=== PATIENT | male | born 1995 | race Caucasian/White ===

== ENCOUNTER 2020-03-20 12:04 | Emergency (ER) | payer OTHER, BC, MEDICAID, SELFPAY ==
[2020-03-20 12:26] VITALS: BP 110/56; PULSE 70; RESP 16; TEMP 37; O2SAT 99
--- NOTE | 2020-03-20 12:26 | ED.URI ---
HPI - URI/Sore Throat General Chief Complaint: Upper Respiratory Infection Stated Complaint: Neg for Covid,Congestion Time Seen by Provider: 03/20/20 12:26 Source: patient and RN notes reviewed Mode of arrival: ambulatory Limitations: no limitations History of Present Illness HPI Narrative: 24-year-old male presents to the ER with complaints of a sore throat, rhinorrhea, cough, fatigue. States he had a positive Covid exposure on 10 March. Symptoms started 16 March, 4 days ago. Denies any chest pain or abdominal pain. Denies fevers. Related Data Home Medications Medication Instructions Recorded Confirmed No Home Medications 03/20/20 03/20/20 Allergies Allergy/AdvReac Type Severity Reaction Status Date / Time No Known Allergies Allergy Verified 03/20/20 12:32 Review of Systems Review of Systems: Narrative: CONSTITUTIONAL: Denies fever, chills, or sweats. EYES: Denies visual changes, redness, or discharge. ENT: Positive rhinorrhea, congestion, sore throat, or otalgia. CARDIOVASCULAR: Denies chest pain, palpitations, or edema. RESPIRATORY: Positive cough or denies dyspnea. GASTROINTESTINAL: Denies abdominal pain, nausea, vomiting, or diarrhea. GENITOURINARY: Denies dysuria or hematuria. SKIN: Denies rash or itching. MUSCULOSKELETAL: Denies back pain, joint pain, or myalgia. NEUROLOGIC: Denies headache, numbness, or weakness. PSYCHIATRIC: Denies anxiety or depression. All other systems reviewed are negative, except as documented in HPI. PMFSH Social History Social History Alcohol intake: never Comments At the time of my signature, I reviewed and agree with the nursing past medical, surgical, social, and family history. There is no relevant family history pertinent to the patient complaint. Exam Narrative: Exam Narrative: GENERAL: This is a well-nourished, well-developed patient, in no apparent distress. HEAD: normocephalic, atraumatic. EYES: PERRL. Sclera clear/white. Vision is grossly intact. EARS: External ears normal, auditory canals clear and without drainage, TMs normal without perforation. Hearing grossly intact. NOSE: External nose normal. Positive nasal discharge, nares without redness, positive rhinorrhea. THROAT: Mucous membranes moist, posterior pharynx clear. NECK: Neck supple, non-tender without lymphadenopathy, masses or thyromegaly. CARDIOVASCULAR: Regular rate and rhythm without murmurs, gallops, or rubs. RESPIRATORY: Clear to auscultation. Breath sounds equal bilaterally. No wheezes, rales, or rhonchi. GASTROINTESTINAL: Abdomen soft, non-tender, nondistended. SKIN: warm, intact with no suspicious lesions or rash, good texture and turgor. NEURO: awake, alert, and oriented to person, place and time. There were no obvious focal neurologic abnormalities. EXTREMITIES: No clubbing, cyanosis, or edema. No joint tenderness, effusion, or edema noted. BACK: Nontender without deformity or crepitance. No flank tenderness. Course Vital Signs Vital signs: Vital Signs Temperature 98.6 F 03/20/20 12:26 Pulse Rate 70 03/20/20 12:26 Respiratory Rate 16 03/20/20 12:26 Blood Pressure 110/56 L 03/20/20 12:26 Pulse Oximetry 99 03/20/20 12:26 Temperature 99.7 F H 03/20/20 13:22 Pulse Rate 102 H 03/20/20 13:22 Respiratory Rate 22 H 03/20/20 13:22 Blood Pressure 113/68 03/20/20 13:22 Pulse Oximetry 100 03/20/20 13:22 Reviewed MDM - URI/Sore Throat Differential Diagnosis Differential diagnosis: Likely upper respiratory infection, otitis media, sinusitis, viral infection, bronchitis, influenza and pharyngitis Lab Data Labs: Lab Results 03/20/20 03/20/20 Range/Units 12:25 12:52 SARS-CoV-2 RNA (RT-PCR) Pending POC SARS CoV-2 Ag Negative (Negative) Influenza A Screen Negative Reference Range: Negative Influenza B Screen Negative Refer
[2020-03-20 12:33] VITALS: BP 110/56; PULSE 70; RESP 16; TEMP 37; O2SAT 99
[2020-03-20 13:22] VITALS: BP 113/68; PULSE 102; RESP 22; TEMP 37.6; O2SAT 100
[2020-03-21 13:28] LABS: SARS-CoV-2 RNA PCR Negative
== END 2020-03-20 13:00 | disposition home or self-care (01) ==
PROVIDERS: Emergency Provider Nurse Practitioner; PCP Physician Assistant
DX: B34.9 Viral infection, unspecified (principal); R09.82 Postnasal drip; Z20.822 Contact with and (suspected) exposure to COVID-19
CPT/HCPCS: 87081; 87426; 87804; 87880; 99213; C9803; G0463; U0003; U0005

== ENCOUNTER 2022-02-17 17:16 | Emergency (ER) | payer BC, MEDICAID, SELFPAY ==
[2022-02-17 17:31] VITALS: BP 109/74; PULSE 77; RESP 18; TEMP 36.9; O2SAT 100
--- NOTE | 2022-02-17 17:46 | ED.URI ---
HPI - URI/Sore Throat General Chief Complaint: Upper Respiratory Infection Stated Complaint: Sore Throat Time Seen by Provider: 02/17/22 17:45 Source: patient Mode of arrival: ambulatory Limitations: no limitations History of Present Illness HPI Narrative: Maco is a 26-year-old male patient presenting to the clinic today with complaints of sinus drainage, sore throat, ear pain, and sinus pressure. He reports his symptoms have been ongoing for a long time now. He denies any fever or chills. MD elicited complaint: sore throat and nasal congestion Related Data Home Medications Medication Instructions Recorded Confirmed bupropion HCl 100 mg tablet 100 mg PO DIRECTED 02/17/22 02/17/22 Allergies Allergy/AdvReac Type Severity Reaction Status Date / Time No Known Allergies Allergy Verified 02/17/22 17:20 Review of Systems Review of Systems: Pertinent positives per HPI. Patient denies any fever, chills, rash, headache, visual changes, dizziness, shortness of breath, chest pain, palpitations, nausea, vomiting, diarrhea, constipation, abdominal pain, or any urinary issues. PMFSH Social History Social History Alcohol intake: never Comments At the time of my signature, I reviewed and agree with the nursing past medical, surgical, social, and family history. There is no relevant family history pertinent to the patient complaint. Exam Narrative: General: Well-developed, well nourished, in no apparent distress Head: Normocephalic, atraumatic Eyes: Pupils equally round and reactive to light bilaterally, EOM intact, sclera and conjunctive clear, no discharge, lids normal Ears: TMs intact , dull with mild bulging, ear canals clear, no drainage, grossly hearing normal. Nose: Nares patent, clear nasal discharge, moderate to severe inflammation, maxillary and frontal sinus tenderness. Mouth: Oral pharynx without lesions or masses, good dentition, MMM. postnasal drip Neck: Supple, trachea midline, no enlargement of anterior or posterior cervical nodes, no thyroid masses or goiter palpable. Cardio: Regular rate and rhythm, s1 and s2 normal, no murmur appreciated. Resp: Clear to auscultation bilaterally, no rhonchi, rales, wheezing or rubs Course Course Emergency Course: Portions of this record may have been created with voice recognition software. Level of Care: Express Care Visit Vital Signs Vital signs: Vital Signs Temperature 36.9 C 02/17/22 17:31 Pulse Rate 77 02/17/22 17:31 Respiratory Rate 18 02/17/22 17:31 Blood Pressure 109/74 02/17/22 17:31 Pulse Oximetry 100 02/17/22 17:31 Oxygen Delivery Room Air 02/17/22 17:31 Temperature 36.9 C 02/17/22 17:31 Pulse Rate 77 02/17/22 17:31 Respiratory Rate 18 02/17/22 17:31 Blood Pressure 109/74 02/17/22 17:31 Pulse Oximetry 100 02/17/22 17:31 Oxygen Delivery Room Air 02/17/22 17:31 Vital signs reviewed MDM - URI/Sore Throat MDM Narrative Medical decision making narrative: at the time of visit patient is resting comfortably on exam table. I suspect patient has acute bacterial rhinosinusitis or chronic sinusitis. Prescription for Augmentin and prednisone was sent to the pharmacy and supportive measures were discussed with the patient he voiced understanding of discharge instructions and agrees to treatment plan. Differential Diagnosis Differential diagnosis: Likely sinusitis, viral infection, influenza and pharyngitis Discharge Plan Discharge Clinical Impression: Acute bacterial rhinosinusitis Patient Disposition: Home, Self-Care Condition: Stable Instructions: Antibiotic Form, Rhinosinusitis (ED) Additional Instructions: Take prescription medications only as prescribed- Augmentin and prednisone Increase fluids and stay well hydrated Tylenol/motrin for pain/fever Flonase and OTC antihistamines as directed Vicks vapor rub to open
== END 2022-02-17 17:55 | disposition home or self-care (01) ==
PROVIDERS: Emergency Provider Nurse Practitioner Family; PCP Physician Assistant
DX: J01.90 Acute sinusitis, unspecified (principal)
CPT/HCPCS: 99213; G0463

== ENCOUNTER 2023-08-13 09:17 | Emergency (ER) | payer OTHER, SELFPAY ==
[2023-08-13 09:27] VITALS: BP 112/77; PULSE 71; RESP 16; TEMP 37.3; O2SAT 100
--- NOTE | 2023-08-13 09:42 | ED.EAR ---
HPI - Ear Problem General Chief complaint: Ear Stated complaint: Congestion,Bilateral Ear Irritation,Cough Time Seen by Provider: 08/13/23 09:42 Source: patient Mode of arrival: ambulatory Limitations: no limitations History of Present Illness HPI Narrative: 27 yo M presents with c/o congestion, green drainage, ears irritated with pressure and cough. Had covid 3 wks ago and symptoms improving but not resolving. Taking robitussin at night for cough. No SOB or fever. All systems reviewed and negative except as noted above. Related Data Allergies Allergy/AdvReac Type Severity Reaction Status Date / Time No Known Allergies Allergy Verified 08/13/23 09:28 Review of Systems Review of Systems: CONSTITUTIONAL: Denies fever, chills, or sweats. EYES: Denies visual changes, redness, or discharge. ENT: Reports rhinorrhea, congestion. Denies sore throat. Reports otalgia. CARDIOVASCULAR: Denies chest pain, palpitations, or edema. RESPIRATORY: reports cough. Denies dyspnea. GASTROINTESTINAL: Denies abdominal pain, nausea, vomiting, or diarrhea. GENITOURINARY: Denies dysuria or hematuria. SKIN: Denies rash or itching. MUSCULOSKELETAL: Denies back pain, joint pain, or myalgia. NEUROLOGIC: Denies headache, numbness, or weakness. PSYCHIATRIC: Denies anxiety or depression. All other systems reviewed are negative, except as documented in HPI. PMFSH Social History Social History Alcohol intake: never Comments At time of signature, agree with nursing past medical, surgical, social and family history. There is no relevant family history pertinent to the presenting complaint. Exam Narrative: GENERAL: This is a well-nourished, well-developed patient, in no apparent distress. HEAD: normocephalic, atraumatic. EYES: PERRL. Sclera clear/white. Vision is grossly intact. EARS: External ears normal, auditory canals clear and without drainage, Clear fluid bilateral TMs with normal light reflex, no perforation bilaterally by. Hearing grossly intact. NOSE: External nose normal with erythema and swelling to bilateral nares with mild congestion. THROAT: Mucous membranes moist, mild erythema with clear postnasal drainage. NECK: Neck supple, non-tender without lymphadenopathy, masses or thyromegaly. CARDIOVASCULAR: Regular rate and rhythm without murmurs, gallops, or rubs. RESPIRATORY: Clear to auscultation. Breath sounds equal bilaterally. No wheezes, rales, or rhonchi. SKIN: warm, Dry, intact with no suspicious lesions or rash, good texture and turgor. NEURO: awake, alert, and oriented to person, place and time. There were no obvious focal neurologic abnormalities. EXTREMITIES: No joint tenderness, effusion, or edema noted. Course Course Level of Care: Express Care Visit Vital Signs Vital signs: Vital Signs Temperature 37.3 C 08/13/23 09:27 Pulse Rate 71 08/13/23 09:27 Respiratory Rate 16 08/13/23 09:27 Blood Pressure 112/77 08/13/23 09:27 Pulse Oximetry 100 08/13/23 09:27 Oxygen Delivery Room Air 08/13/23 09:27 Temperature 37.3 C 08/13/23 09:27 Pulse Rate 71 08/13/23 09:27 Respiratory Rate 16 08/13/23 09:27 Blood Pressure 112/77 08/13/23 09:27 Pulse Oximetry 100 08/13/23 09:27 Oxygen Delivery Room Air 08/13/23 09:27 Reviewed Medical Decision Making MDM Narrative Medical decision making narrative: Patient is aware of diagnosis, understands and agrees to treatment plan. Anticipatory guidance given. Patient agrees to follow-up as directed and is aware of reasons to seek care at the emergency department. Portions of this record may have been created with voice recognition software will treat patient with antibiotic, prednisone due to duration of symptoms, exam findings. Vital Signs Vital Signs: Vital Signs Temperature 37.3 C 08/13/23 09:27 Pulse Rate 71 08/13/23 09:27 Respiratory Rate 16 06
== END 2023-08-13 09:55 | disposition home or self-care (01) ==
PROVIDERS: Emergency Provider Nurse Practitioner Family; PCP Physician Assistant
DX: J01.90 Acute sinusitis, unspecified (principal)
CPT/HCPCS: 99213; G0463

== ENCOUNTER 2023-12-07 11:46 | Emergency (ER) | payer OTHER, SELFPAY ==
[2023-12-07 11:59] VITALS: BP 115/76; PULSE 84; RESP 18; TEMP 37.5; O2SAT 100
--- NOTE | 2023-12-07 12:21 | ED.URI ---
HPI - URI/Sore Throat General Chief Complaint: Upper Respiratory Infection Stated Complaint: Sinus Time Seen by Provider: 12/07/23 12:21 Source: patient Mode of arrival: ambulatory Limitations: no limitations History of Present Illness HPI Narrative: 28-year-old male presents with complaint of sinus issues for years. States he is having congestion, sinus pressure, postnasal drainage, intermittent sore throat for the past 2 weeks. Feels like he has tonsil stones. Afebrile. Not taking any [id number] medications to treat his symptoms. Plans to see an ENT but has not scheduled appointment. All systems reviewed and negative except as noted above. Related Data Allergies Allergy/AdvReac Type Severity Reaction Status Date / Time No Known Allergies Allergy Verified 12/07/23 11:48 Review of Systems Review of Systems: CONSTITUTIONAL: Denies fever, chills, or sweats. EYES: Denies visual changes, redness, or discharge. ENT: Reports rhinorrhea, congestion, sinus pressure, sore throat, bilateral ear pressure CARDIOVASCULAR: Denies chest pain, palpitations, or edema. RESPIRATORY: Denies cough or dyspnea. GASTROINTESTINAL: Denies abdominal pain, nausea, vomiting, or diarrhea. GENITOURINARY: Denies dysuria or hematuria. SKIN: Denies rash or itching. MUSCULOSKELETAL: Denies back pain, joint pain, or myalgia. NEUROLOGIC: Denies headache, numbness, or weakness. PSYCHIATRIC: Denies anxiety or depression. All other systems reviewed are negative, except as documented in HPI. PMFSH Social History Social History Alcohol intake: never Comments At time of signature, agree with nursing past medical, surgical, social and family history. There is no relevant family history pertinent to the presenting complaint. Exam Narrative: GENERAL: This is a well-nourished, well-developed patient, in no apparent distress. HEAD: normocephalic, atraumatic. EYES: PERRL. Sclera clear/white. Vision is grossly intact. EARS: External ears normal, auditory canals clear and without drainage, Fluid to bilateral TMs with air bubbles. No erythema or perforation bilaterally.Hearing grossly intact. NOSE: External nose normal with Mild erythema to bilateral nares with no significant swelling. Mild congestion, ethmoid sinus tenderness on palpation. THROAT: Mucous membranes moist Clear postnasal drainage. No erythema, swelling or exudates. No tonsil stones noted. NECK: Neck supple, non-tender without lymphadenopathy, masses or thyromegaly. CARDIOVASCULAR: Regular rate and rhythm without murmurs, gallops, or rubs. RESPIRATORY: Clear to auscultation. Breath sounds equal bilaterally. No wheezes, rales, or rhonchi. SKIN: warm, Dry, intact with no suspicious lesions or rash, good texture and turgor. NEURO: awake, alert, and oriented to person, place and time. There were no obvious focal neurologic abnormalities. EXTREMITIES: No joint tenderness, effusion, or edema noted. Course Course Level of Care: Express Care Visit Vital Signs Vital signs: Vital Signs Temperature 37.5 C 12/07/23 11:59 Pulse Rate 84 12/07/23 11:59 Respiratory Rate 18 12/07/23 11:59 Blood Pressure 115/76 12/07/23 11:59 Pulse Oximetry 100 12/07/23 11:59 Oxygen Delivery Room Air 12/07/23 11:59 Temperature 37.5 C 12/07/23 11:59 Pulse Rate 84 12/07/23 11:59 Respiratory Rate 18 12/07/23 11:59 Blood Pressure 115/76 12/07/23 11:59 Pulse Oximetry 100 12/07/23 11:59 Oxygen Delivery Room Air 12/07/23 11:59 Reviewed MDM - URI/Sore Throat MDM Narrative Medical decision making narrative: patient treated for bacterial sinusitis with amoxicillin due to duration of symptoms and exam findings. Patient given ENT referral at his request. Patient is well-appearing, afebrile. Patient is aware of diagnosis, understands and agrees to treatment plan. Anticipatory guidance given.
== END 2023-12-07 12:35 | disposition home or self-care (01) ==
PROVIDERS: Emergency Provider Nurse Practitioner Family; PCP Physician Assistant
DX: J01.90 Acute sinusitis, unspecified (principal)
CPT/HCPCS: 99213; G0463

== ENCOUNTER 2024-07-21 15:48 | Emergency (ER) | payer OTHER, SELFPAY ==
[2024-07-21 16:03] VITALS: BP 137/66; PULSE 61; RESP 16; TEMP 36.4; O2SAT 100
[2024-07-21 16:55] LABS: Basophils Percent Auto 0.3 % (0.2-1.2); Eosinophils Percent Auto 0.7 % (0-4.4); Hemoglobin 14.9 g/dL (14.0-18.0); Immature Granulocyte Absolute 0.01 K/mm3 (0.00-0.031); Immature Granulocyte Percent A 0.2 % (0-0.5); Lymphocytes Absolute Auto 2.54 K/mm3 (0.9-3.2); Lymphocytes Percent Auto 41.7 % (18.3-44.2); Mean Corpuscular HGB Conc 32.4 g/dl (32-36); Mean Corpuscular Hemoglobin 30.7 pg (26-34); Mean Corpuscular Volume 94.7 fl (80-100); Mean Platelet Volume 10.9 fl (7.4-10.4); Monocytes Absolute Auto 0.4 K/mm3 (0.1-0.6); Monocytes Percent Auto 7.2 % (2.6-8.5); Neutrophils Percent Auto 49.9 % (45.5-73.1); Platelet Count Result 228 k/mm3 (150-375); Red Blood Count 4.86 M/mm3 (4.6-6.20); Red Cell Distribution Width 12.6 % (11.5-14.5); White Blood Count 6.1 K/mm3 (4.5-10.0)
--- NOTE | 2024-07-21 16:58 | ED_ITS ---
HPI - General Adult General Chief complaint: GI Bleed Stated complaint: Blood in stool x 3 days, gas/bloating Time Seen by Provider: 07/21/24 16:35 History of Present Illness HPI narrative: Patient is a 28-year-old gentleman who presents emergency department with chief complaint of blood with bowel movements. The patient states for the last 3 days he has noticed some blood whenever he lytes patient states that he has had a little bit of bloating and some gas. The patient reports that he has no significant abdominal pain reports that he has had no vomiting or diarrhea reports that there has been no blood on the actual stool and he has had normal brown colored stool Related Data Allergies Allergy/AdvReac Type Severity Reaction Status Date / Time No Known Allergies Allergy Verified 07/21/24 15:50 Review of Systems 2 Review of Systems: A 10 system review of systems was completed on the patient and is negative except for what is stated in the HPI. Nursing and ancillary documentation was reviewed. [facility] Social History Social History Alcohol intake: never Exam 2 Narrative: GENERAL: Well-appearing, well-nourished, and in no acute distress. HEAD: Normocephalic, atraumatic. EYES: PERRLA and EOMI. ENT: Nares clear, no rhinorrhea or epistaxis.? Mucous membranes moist. NECK: Supple. CHEST: Clear to auscultation.? No respiratory distress. HEART: Regular rate and rhythm.? No murmur heard.? Normal peripheral pulses. ABDOMEN: Soft, nontender, nondistended, normal active bowel sounds. EXTREMITIES: Normal range of motion.? No edema. : rectal exam showed normal brown colored stool, guiac negative. no large external hemorrhoid present. SKIN: Warm, dry, no rash. NEURO: No focal deficits.? Alert and oriented x3. PSYCH: Normal mood and affect. Course Vital Signs Vital signs: Vital Signs Temperature 36.4 C L 07/21/24 16:03 Pulse Rate 61 07/21/24 16:03 Respiratory Rate 16 07/21/24 16:03 Blood Pressure 137/66 07/21/24 16:03 Pulse Oximetry 100 07/21/24 16:03 Oxygen Delivery Room Air 07/21/24 16:03 Temperature 36.6 C 07/21/24 17:50 Pulse Rate 66 07/21/24 17:50 Respiratory Rate 14 07/21/24 17:50 Blood Pressure 124/70 07/21/24 17:50 Pulse Oximetry 100 07/21/24 17:50 Oxygen Delivery Room Air 07/21/24 16:03 Medical Decision Making Vital Signs Vital Signs: Vital Signs Temperature 36.4 C L 07/21/24 16:03 Pulse Rate 61 07/21/24 16:03 Respiratory Rate 16 07/21/24 16:03 Blood Pressure 137/66 07/21/24 16:03 Pulse Oximetry 100 07/21/24 16:03 Oxygen Delivery Room Air 07/21/24 16:03 Temperature 36.6 C 07/21/24 17:50 Pulse Rate 66 07/21/24 17:50 Respiratory Rate 14 07/21/24 17:50 Blood Pressure 124/70 07/21/24 17:50 Pulse Oximetry 100 07/21/24 17:50 Oxygen Delivery Room Air 07/21/24 16:03 Lab Data 07/21/24 16:46 07/21/24 16:46 Labs: Lab Results 07/21/24 Range/Units 16:46 WBC 6.1 (4.5-10.0) K/mm3 RBC 4.86 (4.6-6.20) M/mm3 Hgb 14.9 (14.0-18.0) g/dL Hct 46.0 (42.0-52.0) % MCV 94.7 (80-100) fl MCH 30.7 (26-34) pg MCHC 32.4 (32-36) g/dl RDW 12.6 (11.5-14.5) % Plt Count 228 (150-375) k/mm3 MPV 10.9 H (7.4-10.4) fl Immature Gran % (Auto) 0.2 (0-0.5) % Neut % (Auto) 49.9 (45.5-73.1) % Lymph % (Auto) 41.7 (18.3-44.2) % [place] % (Auto) 7.2 (2.6-8.5) % Eos % (Auto) 0.7 (0-4.4) % Baso % (Auto) 0.3 (0.2-1.2) % Lymph # (Auto) 2.54 (0.9-3.2) K/mm3 [place] # (Auto) 0.4 (0.1-0.6) K/mm3 Eos # (Auto) 0.0 (0-0.3) K/mm3 Baso # (Auto) 0.0 (0.0-0.1) K/mm3 Abs Immat Gran (auto) 0.01 (0.00-0.031) K/mm3 Absolute Neuts (auto) 3.0 (1.3-6.7) K/mm3 Absolute Nucleated RBC 0.000 (0.0-0.012) K/mm3 Nucleated RBC % 0.0 (0.0-0.2) % PT 14.1 (11.1-14.7) Seconds INR 1.1 APTT 26.5 (22.3-36.8) Seconds Sodium 143 (137-145) mmol/L Potassium 4.0 (3.4-5.0) mmol/L Chloride 104 (98-107) mmol/L Carbon Dioxide 29 (22-30) mmol/L Anion Gap 10 (4-12) mmol/L BUN 11 (9-20) mg/dL Creatinine 0.78 (0.7-1.3) mg/dL Estim Creat Clear Calc 121 ml/min Estimated GFR > 60 (59 - ) Glucose 91 (65-110) mg/dL Calcium 9.3 (8.4-10.2) mg/dL Total Bilirubin 1.0 (0.2-1.3) mg/dL AST 28 (17-59) U/L ALT 15 (6-50) U/L Alkaline Phosphatase 52 (38-126) U/L Total Protein 8.0 (6.3-8.2) g/dL Albumin 4.8 (3.5-5.1) g/dL Blood Type O Positive Antibody Screen Negative Discharge Plan Discharge Clinical Impression: Rectal bleed Patient Disposition: Home Condition: Stable Instructions: Antibiotic Form, Hemorrhoids (ED), Rectal Bleeding (ED) Patient Language: Thai Prescriptions: New hydrocortisone acetate 25 mg suppository 25 mg RECTAL BID Qty: 12 0RF No Action amoxicillin 875 mg tablet 875 mg PO Q12H 7 Days Qty: 14 0RF Follow-up/Referrals: Juma,Sharmila, PA-C [Primary Care Provider] - Time of Disposition: 17:40
[2024-07-21 17:04] LABS: Alanine Aminotransferase 15 U/L (6-50); Albumin Level 4.8 g/dL (3.5-5.1); Alkaline Phosphatase 52 U/L (38-126); Anion Gap 10 mmol/L (4-12); Aspartate Amino Transferase 28 U/L (17-59); Blood Urea Nitrogen 11 mg/dL (9-20); Calcium 9.3 mg/dL (8.4-10.2); Carbon Dioxide 29 mmol/L (22-30); Chloride 104 mmol/L (98-107); Estimated CRCL calculation 121 ml/min; Estimated Glomerular Filt Rate > 60; Glucose 91 mg/dL (65-110); Sodium 143 mmol/L (137-145)
[2024-07-21 17:06] LABS: INR 1.1; Prothrombin Time 14.1 Seconds (11.1-14.7)
[2024-07-21 17:07] LABS: Partial Thromboplastin Time 26.5 Seconds (22.3-36.8)
[2024-07-21 17:50] VITALS: BP 124/70; PULSE 66; RESP 14; TEMP 36.6; O2SAT 100
--- OUTSIDE RECORDS SUMMARY | 2024-07-21 18:13 | XMS_ITS | Data Portability ---
Author Organization Luisa MCKEON Address [address] [facility] [place] [address] Care Team Providers Care Outlet Manager Name Role Phone AUDREY BAUER Primary Care Provider Unavailab le Assessment No assessment recorded. Plan of Treatment Reminders Order Date Submit Date Provider Last Modified By Organization Details Last Modified Time Details Appointments ANY 15 2024 02:00P M SAUNDRA Lockwood Not available Not available Not available Lab TSH, ultra-sen sitive, serum 2023 024 [facility], [address] [facility], [address], [place], [address], 12/05/2023 11:25:32 CBC w/ auto diff 2023 024 [facility], [address] [place] [address], [address], [place], [address], 12/05/2023 11:25:32 CMP, serum or plasma 2023 024 [facility], [address] [facility], [address], [place], [address], 12/05/2023 11:25:32 lipid panel, serum 2023 024 [facility], [address] [facility], [address], [place], [address], 12/05/2023 11:25:32 HbA1c (hemoglob in A1c), blood 2023 024 [email or web address], [address] [facility], [address], [place], [address], 12/05/2023 11:25:32 Referral counselin g referral 2023 024 [facility], [address], [place], [address], 05/21/2024 11:11:27 dermatolo gist referral - overall skin check [address] [facility], [address] [place] [address], [address], 01/08/2024 11:35:02 Procedures None recorded. Surgeries None recorded. Imaging None recorded. Medication Orders guanfacin e ER 1 mg tablet,ex tended release 24 hr 2024 025 [id number], [address] [place], [address], 04/23/2024 15:21:49 amoxicill in 875 mg tablet 2024 025 [id number] [address] [place], [address], 04/23/2024 14:45:03 guanfacin e ER 1 mg tablet,ex tended release 24 hr 2024 025 [id number] [address] [place], [address], 03/19/2024 15:51:21 Patient TargetsNo targets recorded. Patient InstructionsNo instructions recorded. Reason for Referral Oil Exploration Engineer Referral for S kin lesion establish care, routine skin check on some areas. overall skin check Referring Physician: Audrey Bauer, Internal Medicine, Encounter Date: 10/02/2023 Counseling Referral for Gene ralized anxiety disorder Referring Physician: Audrey Bauer, Internal Medicine, Encounter Date: 10/02/2023 Results Created Date Observation Date Name Description Value Unit Range Abnormal Flag Note LastModifiedBy Organization Detail LastModifiedTime Result Notes None recorded. Problems Name Problem SNOMED Code Status Onset Date Resolution Date Notes Provider Name and Address Organization Details Recorded Time Body mass index 20-24 - normal 239027715 Active 2023 Jodie Nicole null, [place] - [facility] 4 11:37:18 Generalized anxiety disorder 39344883 Active 2023 SAUNDRA Lockwood Attn: Accountshanda g,[address] [facility], [place], [address], [place] - [facility] 4 17:41:18 Adult attention deficit hyperactivi ty disorder 098079426 Active 2023 SAUNDRA Lockwood Attn: Accountin g,[address] [facility], [place], [address], [place] [facility] 4 17:41:44 Positive screening for depression on PHQ-9 (Patient Health Questionnai re 9) 2068311334098 00 Active 2023 SAUNDRA Lockwood Attn: Accountin g,[address] [facility], [place], [address], [place] [facility] 4 17:42:21 Problem Notes None recorded. Procedures Surgical History Date Name Laterality Status Provider Name and Address Organization Details Recorded Time Orthopedic surgery ss completed Jodie Nicole CT - [facility] 10/02/2023 16:12:54 Imaging Results None recorded. Procedure Notes None recorded. Medical Equipment None Reported. Allergies No known drug allergies Medications Name Sig Start Date Stop Date Status Note LastModified by Organization Details LastModified Time ciproflox acin 500 mg tablet 09/26 completed Not Available Not Available Not Available amoxicill in 875 mg tablet Take 1 tablet every 12 hours by oral route. 2024 active Not Available Not Available Not Avai lable imiquimod 5 % topical cream packet PLEASE SEE ATTACHED FOR DETAILED DIRECTIO NS 04/23 completed Not Available Not Available Not Available amoxicill in 875 mg-potass ium clavulana te 125 mg tablet 09/26 completed Not Available Not Available Not Available varenicli ne tartrate 0.5 mg (11)-1 mg (42) tablets in a dose pack 10/01 completed stopped by pt. Not Available Not Available Not Available guanfacin e ER 1 mg tablet,ex tended release 24 hr Take 1 tablet every day by oral route at bedtime. 2024 active Not Available Not Available Not Avai lable Vitals Date Recorded Body mass index (BMI) Body weight Respiratory rate Systolic blood pressure Diastolic blood pressure Provider Name and Address Organization Details Last Updated DateTime 03/19/2024 20.1 kg/m2 86436.9 2 g 18 /min 100 mm[Hg] 80 mm[Hg] SAUNDRA Lockwood Attn: Accountin g,[address] [place], [address], [facility] 15:42:16 Date Recorded Body height Oxygen saturation Oxygen saturation in Arterial blood by Pulse oximetry Heart rate Systolic blood pressure Diastolic blood pressure Provider Name and Address Organization Details Last Updated DateTime 187.96 cm 97 % 97 % 72 /min 112 mm[Hg] 68 mm[Hg] Melyssa Robledo MA [facility] 15:23:07 Date Recorded Respiratory rate Systolic blood pressure Diastolic blood pressure Provider Name and Address Organization Details Last Updated DateTime 04/23/2024 16 /min 110 mm[Hg] 80 mm[Hg] SAUNDRA Lockwood Attn: Accounting, [address] [place], [address], [facility] 04/23/2024 15:09:51 Date Recorded Body height Body mass index (BMI) Body weight Oxygen saturation Oxygen saturation in Arterial blood by Pulse oximetry Heart rate Systolic blood pressure Diastolic blood pressure Provider Name and Address Organization Details Last Updated DateTime 187.96 cm 20.2 kg/m2 58578 g 98 % 98 % 82 /min 126 mm[Hg] 80 mm[Hg] Melyssa Robledo MA [facility] 14:47:24 Date Recorded Body weight Body mass index (BMI) Body height Respiratory rate Heart rate Oxygen saturation Oxygen saturation in Arterial blood by Pulse oximetry Systolic blood pressure Diastolic blood pressure Provider Name and Address Organization Details Last Updated DateTime 4 [address]29.7 4 g 21.2 kg/m2 187.96 cm 16 /min 98 /min 98 % 98 % 120 mm[Hg] 80 mm[Hg] Jodie Nicole [facility] 4 11:36:55 Social History Question Answer Notes LastModified by Organizat ion Details LastModified Time Tobacco Smoking Status Former Smoker ROCK [place], [facility] 03/19/2024 15:21:00 Do You Have An Advance Directive? No [email or web address] Information not available 10/02/2023 Are You Blind Or Do You Have Difficulty Seeing? No [email or web address] Information not available 10/02/2023 What Is Your Level Of Caffeine Consumption? Heavy [email or web address] Information not available 10/02/2023 In The 14 Days Before Symptom Onset, Have You Had Close Contact With A Laboratory-confir med COVID-19 While That Case Was Ill? No [email or web address] Information not available 10/02/2023 In The 14 Days Before Symptom Onset, Have You Had Close Contact With A Person Who Is Under Investigation For COVID-19 While That Person Was Ill? No Information not available 10/02/2023 Have You Been To An Area Known To Be High Risk For COVID-19? No Information not available 10/02/2023 Are You Deaf Or Do You Have Serious Difficulty Hearing? Yes [email or web address] Information not available 10/02/2023 What Type Of Diet Are You Following? REGULAR [email or web address] Information not available 10/02/2023 Are There Any Guns Present In Your Home? No [email or web address] Information not available 10/02/2023 What Was The Date Of Your Most Recent Tobacco Screening? 04/23/2024 Information not available 04/23/2024 What Is Your Current Pack Years? [email or web address] Information not available 03/19/2024 What Is Your Relationship Status? Single [email or web address] Information not available 10/02/2023 Do You Use Your Seat Belt Or Car Seat Routinely? Yes [email or web address] Information not available 10/02/2023 Do You Have Smoke And Carbon Monoxide Detectors In Your Home? Yes [email or web address] Information not available 10/02/2023 At What Age Did You Start Smoking Tobacco? 16 [email or web address] Information not available 10/02/2023 How Much Tobacco Do You Smoke? No 1/2 Pack 2 Months Information not available 03/19/2024 Do You Use Sunscreen Routinely? Yes Information not available 10/02/2023 Has Tobacco Cessation Counseling Been Provided? Yes [email or web address] Information not available 10/02/2023 On What Date Was Tobacco Cessation Counseling Provided? 04/23/2024 Information not available 04/23/2024 Sex: Male Functional Status Question Answer Note LastModified by Organizat ion Details LastModified Time Do you use any illicit or recreational drugs? Yes weed [email or web address] Information not available 10/02/2023 Do you or have you ever used any other forms of tobacco or nicotine? Yes Information not available 03/19/2024 What is your level of alcohol consumption? None [email or web address] Information not available 10/02/2023 Do you or have you ever used smokeless tobacco? Never used smokeless tobacco nicotine pouches Information not available 03/19/2024 Are you currently employed? Yes [email or web address] Information not available 10/02/2023 Are you able to care for yourself? Yes Information not available 10/02/2023 Do you or have you ever used e-cigarettes or vape? Never used electronic cigarettes Information not available 03/19/2024 What is your exercise level? None [email or web address] Information not available 10/02/2023 Mental Status None recorded. Family History Relationship Description Onset Age of this Age Resolved Age Notes LastModified by Organization Details LastModified Time Father General health good [email or web address] Not available 01/2024 11:37:55 Sister Alcoholism Not avail able 10/02/2023 16:13:11 Mother Asthma [email or web address] Not available 10/02/2023 16:13:19 Medical History No medical history recorded. Immunizations Vaccine Type Date Status Note Provider Nam e and Address Organization Details Recorded Time Hib, unspecified formulation 0 completed Melyssa Robledo [place], [place] [facility] 03/19/2024 15:21:06 IPV 0 completed Melyssa Robledo [place], [place] [facility] 03/19/2024 15:21:06 MMR 6 completed Melyssa Robled[place] [facility] 03/19/2024 15:21:06 MMR 0 completed Melyssa Robled[place] [facility] 03/19/2024 15:21:06 MMR 9 completed Melyssa Robled[place] [facility] 03/19/2024 15:21:06 COVID-19, mRNA, LNP-S, PF, 100 mcg/0.5mL dose or 50 mcg/0.25mL dose 1 completed Melyssa Robled[place] [facility] 03/19/2024 15:21:06 COVID-19, mRNA, LNP-S, PF, 100 mcg/0.5mL dose or 50 mcg/0.25mL dose 1 completed Melyssa Robled[place] [facility] 03/19/2024 15:21:06 influenza, unspecified formulation 3 completed Melyssa Robled[place] [facility] 03/19/2024 15:21:06 Tdap 9 completed Melyssa [place]led[place] [facility] 03/19/2024 15:21:06 varicella 9 completed Melyssa Rob[place] [facility] 03/19/2024 15:21:06 varicella 5 completed Melyssa Rob[place] [facility] 03/19/2024 15:21:06 DTP 0 completed M[place]ssa Rob[place] [facility] 03/19/2024 15:21:06 DTP 6 completed Melyssa Rob[place] [facility] 03/19/2024 15:21:06 OPV 5 completed Melyssa Robled[place] [facility] 03/19/2024 15:21:06 OPV 5 completed Melyssa Rob[place] [facility] 03/19/2024 15:21:06 OPV 6 completed Melyssa Rob[place] [facility] 03/19/2024 15:21:06 OPV 9 completed M[place]ssa Rob[place] [facility] 03/19/2024 15:21:06 OPV 4 completed Melyssa [place] [facility] 03/19/2024 15:21:06 influenza, split (incl. purified surface antigen) 5 completed Melyssa [place] [facility] 03/19/2024 15:21:06 Hep B, adolescent or pediatric 4 completed Melyssa [place] [facility] 03/19/2024 15:21:06 Hep B, adolescent or pediatric 5 completed Melyssa Rob[place] [facility] 03/19/2024 15:21:06 Hep B, adolescent or pediatric 4 completed Melyssa [place] [facility] 03/19/2024 15:21:06 meningococcal MCV4P 9 completed Melyssa [place] [facility] 03/19/2024 15:21:06 DTaP 9 completed M[place]ssa [place] [facility] 03/19/2024 15:21:06 DTaP 5 completed M[place]ssa [place] [facility] 03/19/2024 15:21:06 DTaP 5 completed M[place]ssa [place] [facility] 03/19/2024 15:21:06 DTaP 4 completed M[place]ssa [place] [facility] 03/19/2024 15:21:06 Influenza, MDCK, trivalent, PF 3 completed Melyssa [place] [facility] 03/19/2024 15:21:06 Tdap 5 completed SAUNDRA Lockwood Attn: Accounting,[address], [place], [address], [facility] 05/19/2024 01:25:02 Past Encounters Encounter ID Performer Location Encounter Start Date Encounter Closed Date Diagnosis/Indication Diagnosis SNOMED-CT Code Diagnosis ICD10 Code Diagnosis Note [id number] Sebastián Roberts MD [facility] [employer] [address] [place] [address] 10/02/2023 11:26:34 10/02/2023 12:08:10 Skin lesion 79242588 L98.9 Patient would also like a referral to dermatolog ist for overall skin check Generalize d anxiety disorder 07995096 F41.1 Patient would like to seek counseling referral to help manage generalize d anxiety. He does not request any medication and would rather do this with cognitive behavioral therapy. Counseling referral provided Adult atte ntion deficit hyperactivity disorder 991629946 F90.9 Patient does test positive and has an underlying history of attention deficit hyperactiv ity disorder. He also wants to try to manage this with cognitive behavioral therapy Cholesterol screening 27 8847172 Z13.220 Fasting lipid panel is due Diabetes m ellitus screening 515897009 Z13.1 Annual A1c screening is due Long-term drug therapy 031669623 Z79.899 CBC and CMP due Thyroid di sorder screening 811760619 Z13.29 Routine thyroid function screening due Adult heal th examination 656952981 Z00.01 Annual wellness exam completed Positive s creening for depression on PHQ-9 (Patient Health Questionnaire 9) 7030191643 49336 Z13.31 Patient scored an 8 on screening today. He will be seeing counseling for cognitive behavioral therapy for treatment of underlying anxiety. Body mass index 20-24 - normal 756768964 Z68.21 BMI is 21.2 [id number] Sebastián Roberts MD [facility] [employer] [address] [place] [address] 03/19/2024 15:03:44 03/19/2024 16:08:11 Acute right otitis media 622255084 H66.91 Start amoxicilli n 875 twice daily for 7 days for acute right-side d otitis media Adult atte ntion deficit hyperactivity disorder 453111137 F90.9 Patient does test positive and has an underlying history of attention deficit hyperactiv ity disorder. We will do a trial of guanfacine ER 1 mg at bedtime to see if this helps treat attention deficit symptoms. Follow-up appointjosue lockwood made for April 23 Body mass index 20-24 - normal 917139294 Z68.21 BMI is 20.1 [id number] Sebastián Roberts MD [facility] [place] [address] [place] [address] 04/23/2024 14:27:44 04/23/2024 16:11:44 Body mass index 20-24 - normal 646433300 Z68.21 BMI is 20.2 Administra tion of diphtheria, pertussis, and tetanus vaccine 496128517 Z23 Tdap given in the office today to bring him up-to-date Adult atte ntion deficit hyperactivity disorder 166625110 F90.9 Patient is doing terrific on guanfacine ER 1 mg p.o. q.h.s.. Refill has been given follow-up again in October. Health Concerns Section Related Observation LastModified by Organization Detai ls LastModified Time None Recorded Concern Status LastModified by Organization Details LastModified Time None Recorded Advance Directives Directive N: Payers Encounter Date Sequence Insurance Name Policy Number Policy Cabrera Covered Member ID Cabrera Member ID Guarantor Name 10/02/2023 1 [facility] [id number] [facility] [id number] [facility]/19/2024 1 [facility] - [facility] [id number] [employer] [id number] Maco Aguilar 04/23/2024 1 [facility] [id number] Maco Aguilar [id number] [facility] Notes Date Note Type Note Provider Name and Address Organization Details Recorded Time 10/02/2023 text/html Anxiety/Depressi onRepo rted bypatient.Notes:Anayeli lockwood reports underlying generalized anxiety disorder and he is interested in having referral to a counselor. He is not interested in medication therapyGeneric HPI TemplateReported bypatient.Notes:Pt is here to re establish and to discuss ADHD. Form is in the room w/pt. He is not interested in medication therapy for any symptoms of ADHD SAUNDRA Lockwood Attn: Accounting,[address] [facility], [place], [address], [facility] 10/21/2023 17:42:59 03/19/2024 text/html Upper Respirator y SymptomsReported bypatient.Location:[facility] Quality:Right ear pain Severity:mild Duration:Onset a few days ago Onset/Timing:sudden Context:no sick contacts Modifying Factors:OTC medicationNotes:right ear pain/ drainage states that it has been going on for about 2 days now, states that his sinuses does flare up in the winter time.OTC EAR OIL/ DAYQUIL/ ibuprofen States that the pain goes away and then it comes back SAUNDRA Lockwood Attn: Accounting,[address] [facility], [place], [address], [facility] 04/04/2024 08:56:44 04/23/2024 text/html Generic HPI TemplateReported bypatient.Notes:Anayeli lockwood is here to follow-up on his ADHD management. He is taking guanfacine ER 1 mg at bedtime and is doing absolutely fantastic on it. He is very pleased with the results, he has no new complaints and no side effects. SAUNDRA Lockwood Attn: Accounting,[address] [facility], [place], [address], [facility] 05/19/2024 01:25:32
--- OUTSIDE RECORDS SUMMARY | 2024-07-21 18:13 | XMS_ITS | Continuity of Care Document ---
Author Organization [facility] Address [address] [place] [address] [address] [place] [address] Phone Care Team Providers Care Bobbin Winder Tender Name Role Phone Ry Salcedo MD Unavailable Unavailable Medications Medication Instructions Dosage Effective Dates (start - stop) Status Comments Lexapro 10 mg tablet take 1 tablet by or al route every day 10 MG - Active trazodone 50 mg tablet take 1 tablet by ORAL route every bedtime 50 MG - Active Procedures Procedure Date Alcohol Breath Drug Test Read By Direct Observ 022 Offic/outpt E&m [facility] Advance Directives Directive Yes / No Effective Date File Name No Information Encounters Encounter Description Practice Location Reason(s) For Visit Diagnoses Date Provider Providers Copied on Encounter Offic/outpt E&m [facility], [address] [facility] [address], [place], [id number] , tel: [phone] [facility], [facility]. NB Detox (chief complaint) Alcohol dependence, uncomplicatedMarijuan a dependenceMild episode of recurrent major depressive disorder 2 Matias Raza. [address] [facility] [address], [place], [place], [id number] , [place]. tel: [phone] Family History Family Member Type Diagnosis Age At Onset No Information Payers Payer name Insurance type Covered democrat ID Authoriza tion(s) No Information Social History Type Description Quantity Date Captured Comments Alcohol Use Details Unknown Caffeine Use Details Unknown Tobacco Use Status No Information Smoking Status No Information Sex Male Vital Signs Date / Time: Height Weight BMI Pulse Rate Blood Pressure Temperature Respiratory Rate Body Surface Area Head Circumference Head Circ. Percentile Wt./Sreedhar. Percentile BMI percentile Pulse Ox Inhaled Ox 10:16 AM 74.00 in 76.204 kg (168.00 lbs) 21.5 7 kg/m eter (2) 74 /min 120/80 mm[Hg] 97.50 F 16 /min 97 % 21 % Chief Complaint And Reason For Visit From encounter dated '03/26/2021 10:00'. Detox (chief complaint). Description: 25 y/o male presents to office as a new admission into [facility]. Below is his prior substance history. Substance Use Hx: Alcohol x 9 yrs. Was sober for 20 months, then relapsed September,. Has been consistently drinking Whiskey, 750 mL per day . Last use: 10/28/2020.Marijuana flower, wax and eddibles x 10 yrs. Was been consistently using 2-5 pipe bowls, per day . Last use: 10/28/2020.Cocaine x 3+ years. Patient reports he only did it a hand full of times. When he did use cocaine he would snort it. Last use: He only used it during the summer of 2017. UDS: Negative (-)SILAS: 0.000 (-)Covid-19 Vaccine: Moderna x 2PRIOR TREATMENTS: 1. Patient reports 4 prior treatment centers.Withdrawal Sx: NoneSeizure Hx: NoneMental Health Hx: Depression and Generalized Anxiety, ADHD.Past Medical Hx: NonePast Surgical Hx: Lacey Teeth.Allergies: NKDAMedications: Lexapro 10 mg, qd and Trazodone 50 mg, 1 tab qhsSleep medication preference: TrzodoneSocial Hx:Tobacco: VapeMarital Status: SingleChildren: NoneEducation / Employment: Behavioral health techNo pending legal issues Reason For Referral Reason For Referral No Information Plan Of Treatment Date Type Action Status Goal H&P. Due on due History Of Present Illness Encounter Date Complaint History Of Prese nt Illness Detox 25 y/o male pres ents to office as a new admission into [facility]. Below is his prior substance history. Substance Use Hx: Alcohol x 9 yrs. Was sober for 20 months, then relapsed September,. Has been consistently drinking Whiskey, 750 mL per day . Last use: 10/28/2020.Marijuana flower, wax and eddibles x 10 yrs. Was been consistently using 2-5 pipe bowls, per day . Last use: 10/28/2020.Cocaine x 3+ years. Patient reports he only did it a hand full of times. When he did use cocaine he would snort it. Last use: He only used it during the summer of 2017. UDS: Negative (-)SILAS: 0.000 (-)Covid-19 Vaccine: Moderna x 2PRIOR TREATMENTS: 1. Patient reports 4 prior treatment centers.Withdrawal Sx: NoneSeizure Hx: NoneMental Health Hx: Depression and Generalized Anxiety, ADHD.Past Medical Hx: NonePast Surgical Hx: Lacey Teeth.Allergies: NKDAMedications: Lexapro 10 mg, qd and Trazodone 50 mg, 1 tab qhsSleep medication preference: TrzodoneSocial Hx:Tobacco: VapeMarital Status: SingleChildren: NoneEducation / Employment: Behavioral health techNo pending legal issues Functional Status Date Functional Assessmen t No Information Instructions Date Instruction Additional Infor mation continue with Lexapro Related to Mild episode of recurrent major depressive disorder Ad[facility] IOPVit al Signs per routine.CounselingRandom UDS 2-3 x a week. Fax copy of any positive results to office [phone]. Order void after 45 days.RTO x 1 mth or sooner prn relapse or positive test result. Related to Alcohol dependence, uncomplicated Assessments Type Assessment Date assessment Alcohol dependence, uncomplicate d assessment Marijuana dependence impression Maintaining sobriety in a contro lled environment. assessment Mild episode of recurrent major depressive disorder impression stable Mental Status Date Cognitive Assessment Orientation - [place] ed to time, place, person, situation. Patient Care Teams Name Effective Dates (start - stop) Status Members No Information
--- OUTSIDE RECORDS SUMMARY | 2024-07-21 18:13 | XMS_ITS | Continuity of Care Document ---
Author Organization [facility] Address [address] [place] [address] Phone Care Team Providers Care Copy Cutter Name Role Phone Talia Hernández Unavailable Unavailabl e Medications Medication Instructions Dosage Effective Dates (start - stop) Status Comments Augmentin 875 mg-125 mg tablet take 1 tablet by oral route every 12 hours - No Longer Active Zyrtec 10 mg tablet take 1 tablet by oral route every day 10 MG - No Longer Active fluticasone propionate 50 mcg/actuation nasal spray,suspension spray 1 - 2 spray by intranasal route every day in each nostril as needed 50-100 MCG - No Longer Active Procedures Procedure Date Video Visit [id number] Advance Directives Directive Yes / No Effective Date File Name No Information Encounters Encounter Description Practice Location Reason(s) For Visit Diagnoses Date Provider Providers Copied on Encounter Video Visit [id number] [facility], [address], [place], [place], [id number], [place] tel:[phone] [facility] CM Video Visit (chief complaint)si nus congestion (chief complaint) Acute maxillary sinusitis, unspecified [facility]. [address] [place], [address], [place]. tel:[phone] Family History Family Member Type Diagnosis Age At Onset No Information Payers Payer name Insurance type Covered libertarian ID Authoriza tiyassine(s) [facility] [id number] Social History Type Description Quantity Date Captured Comments Alcohol Use Details Unknown Caffeine Use Details Unknown Tobacco Use Status No Information Smoking Status No Information Sex Male Chief Complaint And Reason For Visit From encounter dated '11/27/2020 10:09'. Video Visit (chief complaint). Description: Patient agreed to the video visit and confirmed date ofbirth. This confidential video visit was performed via video communications using [employer].vt sinus congestion (chief complaint). Description: Nasal congestion, mild sore throat, headache/facial pain x 6 days.Was improving, but got worse 2 days ago.Denies fever, n/v, ear pain, cough, dizziness/imbalance at this time.Lives in a treatment facility currently. Tested negative for COVID-19 a fewweeks ago, but has not tested since onset of sxs.Is fully vaccinated against COVID- 19.Declines COVID-19 testing at this time. Reason For Referral Reason For Referral No Information Plan Of Treatment Date Type Action Status Goal H&P. Due on due History Of Present Illness Encounter Date Complaint History Of Prese nt Illness Video Visit Patient agreed t o the video visit and confirmed date of . This confidential video visit was performed via video communications using [employer].vt sinus congestion Nasal congestio n, mild sore throat, headache/facial pain x 6 days.Was improving, but got worse 2 days ago.Denies fever, n/v, ear pain, cough, dizziness/imbalance at this time.Lives in a treatment facility currently. Tested negative for COVID-19 a few weeks ago, but has not tested since onset of sxs.Is fully vaccinated against COVID-19.Declines COVID-19 testing at this time. Functional Status Date Functional Assessmen t No Information Instructions Date Instruction Additional Infor juana Discussed: Take anti biotic as instructed until finished.Please increase your fluid intake.Begin Flonase Nasal Pella and Zyrtec/Claritin daily.Tylenol or Motrin as needed for pain and fever.Follow up with Primary care provider in 1 week if not improving.Return to Urgent Care sooner if your symptoms get worse.Thank you for coming in today. Related to Acute maxillary sinusitis, unspecified Assessments Type Assessment Date assessment Acute maxillary sinusitis, unspe cified Mental Status Date Cognitive Assessment Orientation - [place] ed to time, place, person, situation. Patient Care Teams Name Effective Dates (start - stop) Status Members No Information
--- OUTSIDE RECORDS SUMMARY | 2024-07-21 18:13 | XMS_ITS | Referral Summary ---
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
--- OUTSIDE RECORDS SUMMARY | 2024-07-21 18:13 | XMS_ITS | Clinical Summary ---
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 Gender Identity Not on file Sexual Orientation Not on file Plan of Treatment Health Maintenance Due Date Last Done Comments Depression Screening 1993 Hepatitis C Screening 1993 DTaP/Tdap/Td Vaccine (1 - Tdap) 2004 Varicella Vaccines (2 of 2 - 2-dose childhood series) 12/21/2004 09/28/2004 Hepatitis B Screening 11/06/2011 Regular Well Visit/Exam 18-64 11/06/2011 Covid-19 Vaccine ( - 2023-2 5 season) 2023 08/09/2020, 07/12/2020 Influenza Vaccine (Season Ended) 2024 12/28/2004 HPV Vaccines Aged Out No longer eligi ble based on patient's age to complete this topic Pneumococcal vaccine <65 Aged Out No longer eligible based on patient's age to complete this topic
--- OUTSIDE RECORDS SUMMARY | 2024-07-21 18:13 | XMS_ITS | Data Portability ---
Author Organization [facility] [employer], Main Office Address [address] [place] [address] Assessment No assessment recorded. Plan of Treatment Reminders Order Date Submit Date Provider Last Modified By Organization Details Last Modified Time Details Appointments None recorded. Lab TSH + free T4, serum 2022 023 [employer] [facility], [address], [address], [place], [address], 3 22:09:19 lipid panel, serum 2022 023 [employer] [facility], [address], [address], [place], [address], 3 22:09:20 CBC w/ auto diff 2022 023 [employer] [facility], [address], [address], [place], [address], 3 22:09:24 CMP, serum or plasma 2022 023 [employer] [facility], [address], [address], [place], [address], 3 22:09:21 culture, urine 2022 023 [employer] [facility], [address], [address], [place], [address], 3 22:09:26 urinalysis, complete 2022 023 [employer] [facility], [address], [address], [place], [address], 3 22:09:25 CT + NG RNA, urine 2022 023 [email or web address], [address], [address], [place], [address], 3 16:12:20 HbA1c (hemoglobin A1c), blood 2022 023 [place] [facility], [address], [address], [place], [address], 3 22:09:23 Referral None recorded. Procedures None recorded. Surgeries None recorded. Imaging US, testicle - DOPPLERS 2022 023 [email or web address], [address], [place], [address], 4 08:57:26 Medication Orders Chantix Starting Month Box 0.5 mg (11)-1 mg (42) tablets in dose pack [id number], [address] [place], [address], 3 17:36:31 ciprofloxac in 500 mg tablet 2022 023 [facility] #[id number], [address] [place], [address], 3 11:53:55 Patient TargetsNo targets recorded. Patient InstructionsNo instructions recorded. Reason for Referral None Reported. Results Created Date Observation Date Name Description Value Unit Range Abnormal Flag Note LastModifiedBy Organization Detail LastModifiedTime 12/28/19 23 12/28/2022 TSH+F REE T4 TSH 1.01 mIU/L 0.40-4 .50 normal Not Available [email or web address] [address] [place], [address], 12/28/2022 22:09:19 12/28/19 23 12/28/2022 TSH+F REE T4 T4, free 1.2 NG/dL 0.8-1. 8 normal Not Available [address], [address], 12/28/2022 22:09:19 12/28/19 23 12/28/2022 LIPID PANEL WITH RATIO S cholesterol, total 157 mg/dL <200 normal Not Available [address], [address], 12/28/2022 22:09:20 12/28/19 23 12/28/2022 LIPID PANEL WITH RATIO S HDL cholesterol 53 mg/dL > or = 40 normal Not Available [address], [address], 12/28/2022 22:09:20 12/28/19 23 12/28/2022 LIPID PANEL WITH RATIO S triglyceride s 61 mg/dL <150 normal Not Available [address], [address], 12/28/2022 22:09:20 12/28/19 23 12/28/2022 LIPID PANEL WITH RATIO S LDL-choleste rol 89 mg/dL _(gisela c) normal Refer ence range : <100 Carlos able range <100 mg/dL for prima ry preve ntion ; <70 mg/dL for patie nts with CHD or diabe tic patie nts with > or = 2 CHD risk facto rs. LDL-C is now calcu lated using the Oksana n-Hop kins calcu jack n, which is a valid ated novel sheri white than the Fried amarilys equat ion in the estim ation of LDL-C . Oksana snowden SS et al. LALIT. 2013; 310(1 9): 2061- 2068 (http ://ed ucati on.Qu estDi agnos tics. com/f aq/FA Q164) Not Available [address], [place], [address], 12/28/2022 22:09:20 12/28/19 23 12/28/2022 LIPID PANEL WITH RATIO S chol/HDLC ratio 3.0 (calc ) <5.0 normal Not Available [facility] [address] [address] [place], [address], 12/28/2022 22:09:20 12/28/19 23 12/28/2022 LIPID PANEL WITH RATIO S LDL/HDL ratio 1.7 (calc ) Below [employer] ge Risk: <2.28 [employer] Risk: 2.29- 4.90 Moder ate Risk: 4.91- 7.12 High Risk: >7.13 Not Available [address] [address] [place], [address], 12/28/2022 22:09:20 12/28/19 23 12/28/2022 LIPID PANEL WITH RATIO S non HDL cholesterol 104 mg/dL _(gisela c) <130 normal For patie nts with diabe sindy plus 1 major ASCVD risk facto r, treat ing to a non-H DL-C goal of <100 mg/dL (LDL- C of <70 mg/dL ) is shmuel khan c optio n. Not Available [address] [address] [place], [address], 12/28/2022 22:09:20 12/28/19 23 12/28/2022 COMPR EHENS TOMAS METAB OLIC PANEL glucose 83 mg/dL 65-99 normal Fasti ng refer ence inter malik Not Available [facility] [address] [address] [place], [address], 12/28/2022 22:09:21 12/28/19 23 12/28/2022 COMPR EHENS TOMAS METAB OLIC PANEL urea nitrogen (BUN) 12 mg/dL 7-25 normal Not Available [facility] [address] [address] [place], [address], 12/28/2022 22:09:21 12/28/19 23 12/28/2022 COMPR EHENS TOMAS METAB OLIC PANEL creatinine 0.88 mg/dL 0.60-1 .24 normal Not Available [address], [address], 12/28/2022 22:09:21 12/28/19 23 12/28/2022 COMPR EHENS TOMAS METAB OLIC PANEL eGFR 119 mL/mi n/1.7 3m2 > or = 60 normal Not Available [address], [address], 12/28/2022 22:09:21 12/28/19 23 12/28/2022 COMPR EHENS TOMAS METAB OLIC PANEL BUN/creatini ne ratio SEE NOTE: (calc ) 6-22 Not Repor herman: BUN and Creat inine are withi n refer ence range . Not Available [address], [address], 12/28/2022 22:09:21 12/28/19 23 12/28/2022 COMPR EHENS TOMAS METAB OLIC PANEL sodium 138 mmol/ L 135-14 6 normal Not Available [address], [address], 12/28/2022 22:09:21 12/28/19 23 12/28/2022 COMPR EHENS TOMAS METAB OLIC PANEL potassium 4.3 mmol/ L 3.5-5. 3 normal Not Available [address], [address], 12/28/2022 22:09:21 12/28/19 23 12/28/2022 COMPR EHENS TOMAS METAB OLIC PANEL chloride 103 mmol/ L 98-110 normal Not Available [address], [address], 12/28/2022 22:09:21 12/28/19 23 12/28/2022 COMPR EHENS TOMAS METAB OLIC PANEL carbon dioxide 29 mmol/ L 20-32 normal Not Available [address], [address], 12/28/2022 22:09:21 12/28/19 23 12/28/2022 COMPR EHENS TOMAS METAB OLIC PANEL calcium 9.2 mg/dL 8.6-10 .3 normal Not Available [address], [address], 12/28/2022 22:09:21 12/28/19 23 12/28/2022 COMPR EHENS TOMAS METAB OLIC PANEL protein, total 7.2 g/dL 6.1-8. 1 normal Not Available [address], [address], 12/28/2022 22:09:21 12/28/19 23 12/28/2022 COMPR EHENS TOMAS METAB OLIC PANEL albumin 4.6 g/dL 3.6-5. 1 normal Not Available [address], [address], 12/28/2022 22:09:21 12/28/19 23 12/28/2022 COMPR EHENS TOMAS METAB OLIC PANEL globulin 2.6 g/dL_ (calc ) 1.9-3. 7 normal Not Available [address], [address], 12/28/2022 22:09:21 12/28/19 23 12/28/2022 COMPR EHENS TOMAS METAB OLIC PANEL albumin/glob ulin ratio 1.8 (calc ) 1.0-2. 5 normal Not Available [address], [address], 12/28/2022 22:09:21 12/28/19 23 12/28/2022 COMPR EHENS TOMAS METAB OLIC PANEL bilirubin, total 0.7 mg/dL 0.2-1. 2 normal Not Available [facility] [place] [address] [place], [address], 12/28/2022 22:09:21 12/28/19 23 12/28/2022 COMPR EHENS TOMAS METAB OLIC PANEL alkaline phosphatase 50 U/L 36-130 normal Not Available [facility] [address] [address] [place], [address], 12/28/2022 22:09:21 12/28/19 23 12/28/2022 COMPR EHENS TOMAS METAB OLIC PANEL AST 15 U/L 10-40 normal Not Available [facility] [address] [address] [place], [address], 12/28/2022 22:09:21 12/28/19 23 12/28/2022 COMPR EHENS TOMAS METAB OLIC PANEL ALT 8 U/L 9-46 low Not Available [facility] [address] [address] [place], [address], 12/28/2022 22:09:21 12/28/19 23 12/28/2022 HEMOG LOBIN A1C hemoglobin A1C 5.0 %_of_ total _HGB <5.7 normal For the purpo se of price rodas for the prese nce of diabe sindy: <5.7% Consi stent with the absen ce of diabe sindy 5.7-6 .4% Consi stent with incre ased risk for diabe sindy (pred iabet es) > or =6.5% Consi stent with diabe sindy This assay resul t is consi stent with a decre ased risk of diabe sindy. Curre ntly, no conse nsus exist s reggosia aguiar use of hemog lobin A1c for diagn osis of diabe sindy in child alex. Accor ding to Ameri can Diabe sindy Assoc iatio n (ADA) guide lines , hemog lobin A1c <7.0% repre sents optim al contr ol in non-p regna nt diabe tic patie nts. Diffe rent metri cs may apply to speci fic patie nt popul ation s. Stand ards of Medic al Care in Diabe sindy(A DA). Not Available [facility] [address] [address] [place], [address], 12/28/2022 22:09:22 12/28/19 23 12/28/2022 CBC (INCL UDES DIFF/ PLT) white blood cell count 7.0 thous and/u L 3.8-10 .8 normal Not Available [address], [address], 12/28/2022 22:09:23 12/28/19 23 12/28/2022 CBC (INCL UDES DIFF/ PLT) red blood cell count 4.69 srinivas on/uL 4.20-5 .80 normal Not Available [address] [address] [place], [address], 12/28/2022 22:09:23 12/28/19 23 12/28/2022 CBC (INCL UDES DIFF/ PLT) hemoglobin 15.1 g/dL 13.2-1 7.1 normal Not Available [address], [address], 12/28/2022 22:09:23 12/28/19 23 12/28/2022 CBC (INCL UDES DIFF/ PLT) hematocrit 44.4 % 38.5-5 0.0 normal Not Available [address], [address], 12/28/2022 22:09:23 12/28/19 23 12/28/2022 CBC (INCL UDES DIFF/ PLT) MCV 94.7 fL 80.0-1 00.0 normal Not Available [address], [address], 12/28/2022 22:09:23 12/28/19 23 12/28/2022 CBC (INCL UDES DIFF/ PLT) MCH 32.2 pg 27.0-3 3.0 normal Not Available [email or web address] [address], [address], 12/28/2022 22:09:23 12/28/19 23 12/28/2022 CBC (INCL UDES DIFF/ PLT) MCHC 34.0 g/dL 32.0-3 6.0 normal Not Available [address], [address], 12/28/2022 22:09:23 12/28/19 23 12/28/2022 CBC (INCL UDES DIFF/ PLT) RDW 12.3 % 11.0-1 5.0 normal Not Available [address], [address], 12/28/2022 22:09:23 12/28/19 23 12/28/2022 CBC (INCL UDES DIFF/ PLT) platelet count 195 thous and/u L 140-40 0 normal Not Available [address], [address], 12/28/2022 22:09:23 12/28/19 23 12/28/2022 CBC (INCL UDES DIFF/ PLT) MPV 11.4 fL 7.5-12 .5 normal Not Available [address], [address], 12/28/2022 22:09:23 12/28/19 23 12/28/2022 CBC (INCL UDES DIFF/ PLT) absolute neutrophils 3654 cells /uL 1500-7 800 normal Not Available [address], [address], 12/28/2022 22:09:23 12/28/19 23 12/28/2022 CBC (INCL UDES DIFF/ PLT) absolute lymphocytes 2793 cells /uL 850-39 00 normal Not Available [address], [address], 12/28/2022 22:09:23 12/28/19 23 12/28/2022 CBC (INCL UDES DIFF/ PLT) absolute monocytes 483 cells /uL 200-95 0 normal Not Available [address], [address], 12/28/2022 22:09:23 12/28/19 23 12/28/2022 CBC (INCL UDES DIFF/ PLT) absolute eosinophils 28 cells /uL 15-500 normal Not Available [address], [address], 12/28/2022 22:09:23 12/28/19 23 12/28/2022 CBC (INCL UDES DIFF/ PLT) absolute basophils 42 cells /uL 0-200 normal Not Available [address], [address], 12/28/2022 22:09:23 12/28/19 23 12/28/2022 CBC (INCL UDES DIFF/ PLT) neutrophils 52.2 % normal Not Available [address], [address], 12/28/2022 22:09:23 12/28/19 23 12/28/2022 CBC (INCL UDES DIFF/ PLT) lymphocytes 39.9 % normal Not Available [address], [address], 12/28/2022 22:09:23 12/28/19 23 12/28/2022 CBC (INCL UDES DIFF/ PLT) monocytes 6.9 % normal Not Available [address], [address], 12/28/2022 22:09:23 12/28/19 23 12/28/2022 CBC (INCL UDES DIFF/ PLT) eosinophils 0.4 % normal Not Available [address], [address], 12/28/2022 22:09:23 11/07/12/28/2022 CBC (INCL UDES DIFF/ PLT) basophils 0.6 % normal Not Available [address], [address], 12/28/2022 22:09:23 12/28/19 23 12/28/2022 URINA LYSIS , COMPL ETE color YELLOW yellow normal Not Available [address], [address], 12/28/2022 22:09:25 12/28/19 23 12/28/2022 URINA LYSIS , COMPL ETE appearance CLEAR clear normal Not Available [address], [address], 12/28/2022 22:09:25 12/28/19 23 12/28/2022 URINA LYSIS , COMPL ETE specific gravity 1.018 1.001- 1.035 normal Not Available [address], [address], 12/28/2022 22:09:25 12/28/19 23 12/28/2022 URINA LYSIS , COMPL ETE pH 6.5 5.0-8. 0 normal Not Available [address], [address], 12/28/2022 22:09:25 12/28/19 23 12/28/2022 URINA LYSIS , COMPL ETE glucose NEGATI VE negati ve normal Not Available [address], [address], 12/28/2022 22:09:25 12/28/19 23 12/28/2022 URINA LYSIS , COMPL ETE bilirubin NEGATI VE negati ve normal Not Available [address], [address], 12/28/2022 22:09:25 12/28/19 23 12/28/2022 URINA LYSIS , COMPL ETE ketones NEGATI VE negati ve normal Not Available [address], [address], 12/28/2022 22:09:25 12/28/19 23 12/28/2022 URINA LYSIS , COMPL ETE occult blood NEGATI VE negati ve normal Not Available [address], [address], 12/28/2022 22:09:25 12/28/19 23 12/28/2022 URINA LYSIS , COMPL ETE protein NEGATI VE negati ve normal Not Available [address], [address], 12/28/2022 22:09:25 12/28/19 23 12/28/2022 URINA LYSIS , COMPL ETE nitrite NEGATI VE negati ve normal Not Available [address], [address], 12/28/2022 22:09:25 12/28/19 23 12/28/2022 URINA LYSIS , COMPL ETE leukocyte esterase NEGATI VE negati ve normal Not Available [address], [address], 12/28/2022 22:09:25 12/28/19 23 12/28/2022 URINA LYSIS , COMPL ETE WBC NONE SEEN /hpf < or = 5 normal Not Available [address], [address], 12/28/2022 22:09:25 12/28/19 23 12/28/2022 URINA LYSIS , COMPL ETE RBC NONE SEEN /hpf < or = 2 normal Not Available [address], [address], 12/28/2022 22:09:25 12/28/19 23 12/28/2022 URINA LYSIS , COMPL ETE squamous epithelial cells NONE SEEN /hpf < or = 5 normal Not Available [address], [address], 12/28/2022 22:09:25 12/28/19 23 12/28/2022 URINA LYSIS , COMPL ETE bacteria NONE SEEN /hpf none seen normal Not Available [facility] [address], [address], 12/28/2022 22:09:25 12/28/19 23 12/28/2022 URINA LYSIS , COMPL ETE hyaline cast NONE SEEN /lpf none seen normal Not Available [facility] [address], [address], 12/28/2022 22:09:25 12/28/19 23 12/28/2022 URINA LYSIS , COMPL ETE note This urine was mildred zed for the prese nce of WBC, RBC, bacte odette, casts , and other forme d eleme nts. Only those eleme nts seen were repor herman. Not Available [address], [address], 12/28/2022 22:09:25 12/28/19 23 12/28/2022 CHLAM YDIA/ N. GONOR RHOEA E RNA, TMA, UROGE NITAL chlamydia trachomatis RNA, tma, urogenital NOT DETECT ED not detect ed normal Not Available [address], [address], 12/28/2022 22:09:26 12/28/19 23 12/28/2022 CHLAM YDIA/ N. GONOR RHOEA E RNA, TMA, UROGE NITAL neisseria gonorrhoeae RNA, tma, urogenital NOT DETECT ED not detect ed normal Not Available [address], [address], 12/28/2022 22:09:26 12/28/19 23 12/28/2022 CHLAM YDIA/ N. GONOR RHOEA E RNA, TMA, UROGE NITAL comment The mildred tical perfo rmanc e alize cteri stics of this assay , when used to test SureP ath(T M) speci mens have been deter mined by [facility]. The modif icati ons have not been clear ed or appro marco a by the FDA. This assay has been valid ated pursu ant to the CLIA regul ation s and is used for clini gisela purpo ses. For addit ional infor alexis andres e refer to https ://ed ucati on.qu estdi Near Pages. com/f aq/FA Q154 (This link is being provi ded for infor tracey snowden/ keila ramirez l purpo ses only. ) Not Available [facility] [address] [place], [address], 12/28/2022 22:09:26 12/28/19 23 12/28/2022 CULTU RE, URINE , ROUTI NE culture, urine, routine CULTU RE, URINE , ROUTI NE Micro Numbe r: [id number] Test Statu s: Final Speci men Sourc e: Urine , clean catch Speci men Quali ty: Adequ ate Resul t: No Growt h Not Available [facility] [address] [place], [address], 12/28/2022 22:09:26 Result Notes None recorded. Problems Name Problem SNOMED Code Status Onset Date Resolution Date Notes Provider Name and Address Organization Details Recorded Time Generalized anxiety disorder 56818546 Active JUNE Haque, [facility] 3 14:20:46 Underweight 561181590 Active Not Available [employer] 3 17:47:18 Mild recurrent major depression 41696464 Active JUNE Haque, [facility] 3 14:20:48 Pain in testicle 05734020 Active 2022 SAUNDRA Lockwood [address] [facility], [facility] [address], [place], [address] , [facility] 3 11:47:39 Nicotine dependence 33431314 Active 2022 SAUNDRA Lockwood [address] [facility], [facility] [address], [place], [address] , [facility] [employer] 11:57:01 Problem Notes None recorded. Procedures Surgical History Date Name Laterality Status Provider Name and Address Organization Details Recorded Time extraction of wisdom tooth completed Not Available [facility] 04/20/2022 17:44:52 Imaging Results None recorded. Procedure Notes None recorded. Medical Equipment None Reported. Allergies No known drug allergies Medications Name Sig Start Date Stop Date Status Note LastModified by Organization Details LastModified Time doxycycline hyclate 100 mg capsule TAKE 1 CAPSULE BY MOUTH EVERY 12 HOURS FOR 10 DAYS 10/19 completed Not Available Not Available Not Available citalopram 40 mg tablet active Not Available Not Available Not Available trazodone 50 mg tablet 12/26 completed Not Available Not Available Not Available ondansetron HCl 4 mg tablet 12/26 completed Not Available Not Available Not Available prednisone 20 mg tablet TAKE 2 TABLETS BY MOUTH EVERY DAY FOR 5 DAYS 12/26 completed Not Available Not Available Not Available divalproex 500 mg tablet,delay ed release 12/27 completed Not Available Not Available Not Available ciprofloxaci n 500 mg tablet TAKE 1 TABLET BY MOUTH EVERY 12 HOURS FOR 14 DAYS active Not Available Not Available No t Available bupropion HCl 100 mg tablet TAKE 1 TABLET (100 MG) BY MOUTH IN THE MORNING AND AT BEDTIME 12/27 completed Not Available Not Available Not Available propranolol 10 mg tablet 12/26 completed Not Available Not Available Not Available alprazolam 0.25 mg tablet Take 1 tablet twice a week by oral route as needed. 10/19 completed Not Available Not Available Not Available cephalexin 500 mg capsule TAKE 1 CAPSULE BY MOUTH EVERY 12 HOURS FOR 10 DAYS 10/19 completed Not Available Not Available Not Available diazepam 10 mg tablet 12/26 completed Not Available Not Available Not Available amoxicillin 875 mg-potassium clavulanate 125 mg tablet TAKE 1 TABLET BY MOUTH TWICE A DAY FOR 10 DAYS 12/26 completed Not Available Not Available Not Available Amphetamine Salt Combo 10 mg tablet active Not Available Not Available Not Available escitalopram 10 mg tablet Take 1 tablet every day by oral route. 12/27 completed Not Available Not Available Not Available bupropion HCl XL 300 mg 24 hr tablet, extended release TAKE 1 TABLET (300 MG) BY MOUTH IN THE MORNING . DO NOT CRUSH, CHEW, OR SPLIT 12/27 completed Not Available Not Available Not Available Cialis 10 mg tablet Take 1 tablet every day by oral route. active prn Not Available Not Available No t Available varenicline tartrate 0.5 mg (11)-1 mg (42) tablets in a dose pack Take by oral route for 28 days. active Not Available Not Available No t Available Vitals Date Recorded Body mass index (BMI) Body height Oxygen saturation Oxygen saturation in Arterial blood by Pulse oximetry Heart rate Body temperature Body weight Systolic blood pressure Diastolic blood pressure Provider Name and Address Organization Details Last Updated DateTime 1 19.8 kg/m2 187.96 cm 96 % 96 % 72 /min 98.4 [degF] 25162.6 6 g 110 mm[Hg] 60 mm[Hg] Not Available [facility] 3 17:46:11 Date Recorded Body weight Body mass index (BMI) Body height Body temperature Heart rate Oxygen saturation Oxygen saturation in Arterial blood by Pulse oximetry Systolic blood pressure Diastolic blood pressure Provider Name and Address Organization Details Last Updated DateTime 3 99162.9 6 g 20.8 kg/m2 187.96 cm 97.2 [degF] 65 /min 98 % 98 % 112 mm[Hg] 64 mm[Hg] Joyce Lewis RN [place] - [facility] [place] [facility] 3 11:24:47 Social History Question Answer Notes LastModified by Organizat ion Details LastModified Time Tobacco Smoking Status Current Every Day Smoker Not Available [facility] 04/20/2022 17:44:29 Do You Have An Advance Directive? No [id number] Information not available 04/20/2022 Do You Wear A Helmet When Biking? No [id number] Information not available 04/20/2022 What Is Your Level Of Caffeine Consumption? Occasional [id number] Information not available 04/20/2022 In The 14 Days Before Symptom Onset, Have You Had Close Contact With A Laboratory-confir med COVID-19 While That Case Was Ill? No [id number] Information not available 04/20/2022 In The 14 Days Before Symptom Onset, Have You Had Close Contact With A Person Who Is Under Investigation For COVID-19 While That Person Was Ill? No [id number] Information not available 04/20/2022 What Type Of Diet Are You Following? REGULAR [id number] Information not available 04/20/2022 What Is The Highest Grade Or Level Of School You Have Completed Or The Highest Degree You Have Received? [id number] MIGRATION.[id number] 1127 Information not available 04/20/2022 Have There Been Any Changes To Your Family Or Social Situation? No [email or web address] Information no t available 12/26/2022 Are There Any Guns Present In Your Home? No [id number] 1471 Information not available 04/20/2022 Do You Use Insect Repellent Routinely? Yes [id number] Information not available 04/20/2022 Do You Have A Medical Power Of Emergency Manager? No [id number] 7821 Information not available 04/20/2022 Have You Ever Been Counseled For Unhealthy Alcohol Use? No [id number] 0984 Information not available 04/20/2022 What Is Your Relationship Status? Single MIGRATION.[id number] 3129 Information not available 04/20/2022 Do You Use Your Seat Belt Or Car Seat Routinely? Yes MIGRATION.[id number] 7291 Information not available 04/20/2022 Do You Have Smoke And Carbon Monoxide Detectors In Your Home? Yes MIGRATION.[id number] 6267 Information not available 04/20/2022 At What Age Did You Start Smoking Tobacco? 16 MIGRATION.[id number] 4044 Information not available 04/20/2022 How Much Tobacco Do You Smoke? 1 PPW MIGRATION.963561 6442 Information not available 04/20/2022 Do You Use Sunscreen Routinely? Yes MIGRATION.[id number] 8549 Information not available 04/20/2022 Has Tobacco Cessation Counseling Been Provided? No MIGRATION.[id number] 5658 Information not available 04/20/2022 Have You Recently Traveled Abroad? No MIGRATION.901719 5651 Information not available 04/20/2022 Do You Have Any Dietary Restrictions? No MIGRATION.640216 5161 Information not available 04/20/2022 Sex: Unknown Functional Status Question Answer Note LastModified by Organizat ion Details LastModified Time Do you use any illicit or recreational drugs? No [id number] 026 Information not available 04/20/2022 Do you or have you ever used any other forms of tobacco or nicotine? No MIGRATION.[id number] 026 Information not available 04/20/2022 What is your level of alcohol consumption? Occasional MIGRATION.[id number] 026 Information not available 04/20/2022 Are you currently employed? Yes [email or web address] Information not available 12/26/2022 What is your occupation? [employer] MIGRATION.[id number] 026 Information not available 04/20/2022 What is your exercise level? Moderate MIGRATION.[id number] 026 Information not available 04/20/2022 Mental Status Question Answer Note LastModified by Organizat ion Details LastModified Time Do you feel stressed (tense, restless, nervous, or anxious, or unable to sleep at night)? [id number] [id number] Information not available 04/20/2022 Family History Relationship Description Onset Age of this Age Resolved Age Notes LastModified by Organization Details LastModified Time Mother Anxiety [id number] Not available 04/20/2022 17:44:54 Maternal Grandfather Heart disease [id number] Not available 04/20/2022 17:44:54 Medical History No medical history recorded. Past Encounters Encounter ID Performer Location Encounter Start Date Encounter Closed Date Diagnosis/Indication Diagnosis SNOMED-CT Code Diagnosis ICD10 Code Diagnosis Note [id number] SAUNDRA Lockwood [facility] [place] [address] [place] [address] 10/19/2020 00:00:00 10/19/2020 22:12:50 [id number] SAUNDRA Lockwood [facility] [place] [address] [place] [address] 12/27/2022 11:16:51 12/27/2022 12:20:09 Pain in testicle 84290374 N50.819 left posterior scrotal/te sticular pain at times; refer for u/s testicles and check ua w/cx , cipro 500mg bid x [address] and NG urine. Cholesterol screening 27 [id number] Z13.220 routine fasting labs ordered. Diabetes m ellitus screening [id number] Z13.1 Long-term drug therapy [id number] Z79.899 Thyroid di sorlee screening 527164052 Z13.29 Nicotine dependence 5629 4008 F17.200 pt would like to trial chantix for smoking cessation Health Concerns Section Related Observation LastModified by Organization Detai ls LastModified Time None Recorded Concern Status LastModified by Organization Details LastModified Time None Recorded Advance Directives Directive N: Payers Encounter Date Sequence Insurance Name Policy Number Policy Cabrera Covered Member ID Cabrera Member ID Guarantor Name 12/27/2022 1 [facility] [id number] Macobarrie Aguilar [id number] [facility] Martin López Lauren Notes Date Note Type Note Provider Name and Address Organization Details Recorded Time 10/19/2020 text/html Anxiety/Depressi onR eported bypatient.Quality:m ood worse;increased anxiety;panic symptoms Severity:denies suicidal ideations; able to maintain relationships; does not interfere with activities of daily living Context:relationshi p stress(girlfriend broke up a few months ago) Associated Symptoms:denies homicidal ideations; no significant weight gain; no significant weight loss; no visual/auditory hallucinations; no delusions; no shortness of breath; no crying spells; no panic; no isolation; appetite good; energy good; no apathy; maintaining functionality;high irritability;anxiet y;hypersensitivity; loneliness;restless ness/agitation;slee p disturbances;anxiet y with muscle tension;social withdrawal;decrease d energy;poor concentration; Self-medicating with daily alcohol and cannabis; history of consuming upwards to a fifth/day over the past several years, with in-patient rehab helping him reach sobriety for over a year. He just recently after brake up from girlfriend started drinking alcohol again. 6 weeks of heavy drinking. does not drink during work day. Not Available [facility] [employer] 10/19/2020 22:12:50 12/27/2022 text/html Anxiety/Depressi onR eported bypatient.Quality:s ymptoms worse in the evening;symptoms worse during the day; doesnt matter time of day Severity:denies suicidal ideations; able to maintain relationships; does not interfere with activities of daily living;interference with household activities;interfer ence with work Duration:symptoms lasting over 2 weeks Onset/Timing:still present Context:major life stressors; job stress, moved in with fiance Associated Symptoms:denies homicidal ideations; no significant weight gain; no significant weight loss; no visual/auditory hallucinations; no delusions; no shortness of breath;anxiety;anxi ety with muscle tensionGU problems-MaleReport ed bypatient.Location: scrotum Quality:aching Severity:mild Duration:occasional ; symptoms lasting over 2 weeks Onset/Timing:better Context:sexually active; 1 partners in last year; heterosexual; vaginal intercourse;painful intercourse(sometim es) Associated Symptoms:no penile lesions/sores; no scrotal lesions/sores; no penile discharge; no flank pain; no jaundice; no blood in the urine; no pain during urination; no impotence SAUNDRA Lockwood [address] [place] [address], [place], [address], [place] - [facility] 01/19/2023 21:12:50
--- OUTSIDE RECORDS SUMMARY | 2024-07-21 18:18 | XMS_ITS | Continuity of Care Document ---
Author Organization [facility] Address [address] [place] [address] Phone Care Team Providers Care Pewter Caster Name Role Phone Talia Hernández Unavailable Unavailabl [...] Longer Active Procedures Procedure Date Video Visit [id number] Advance Directives Directive Yes / No Effective Date File Name No Information Encounters Encounter Description Practice Location Reason(s) For Visit Diagnoses Date Provider Providers Copied on Encounter Video Visit [id number] [facility], [address], [place], [place], [id number], [place] tel:[phone] [facility] CM Video Visit (chief complaint)si nus congestion (chief complaint) Acute maxillary sinusitis, unspecified [employer]-Karl Melgar. [address] [place], [address], [place]. tel:[phone] Family History Family Member Type Diagnosis Age At Onset No Information Payers Payer name Insurance type Covered alliance party ID Authoriza tiyassine(s) [facility] [id number] Social History Type Description Quantity Date Captured Comments Alcohol Use Details Unknown Caffeine Use Details Unknown Tobacco Use Status No Information Smoking Status No Information Sex Male Chief Complaint And Reason For Visit From encounter dated '11/27/2020 10:09'. Video Visit (chief complaint). Description: Patient agreed to the video visit and confirmed date ofbirth. This confidential video visit was performed via video communications using Crack.al sinus congestion (chief complaint). Description: Nasal congestion, [...] visit was performed via video communications using Crack.al sinus congestion Nasal congestio n, mild sore [...] finished.Please increase your fluid intake.Begin Flonase Nasal [place] and Zyrtec/Claritin daily.Tylenol or Motrin as needed for pain and fever.Follow up with Primary care provider in 1 week if not improving.Return to Urgent Care sooner if your symptoms get worse.Thank you for coming in today. Related to Acute maxillary sinusitis, unspecified Assessments Type Assessment Date assessment Acute maxillary sinusitis, unspe cified Mental Status Date Cognitive Assessment Orientation - [place] ed to time, place, person, situation. Patient Care Teams Name Effective Dates (start - stop) Status Members No Information
--- OUTSIDE RECORDS SUMMARY | 2024-07-21 18:18 | XMS_ITS | Continuity of Care Document ---
Author Organization [facility] Address [address] [place] [address] [address] [place] [address] Phone Care Team Providers Care Corporate Sales Representative Name Role Phone Ry Salcedo MD Unavailable [...] Read By Direct Observ 022 Offic/outpt E&m [facility] Advance Directives Directive Yes / No Effective Date File Name No Information Encounters Encounter Description Practice Location Reason(s) For Visit Diagnoses Date Provider Providers Copied on Encounter Offic/outpt E&m [facility], [address] [facility] [address], [place], [id number] , tel: [phone] [facility], [facility]. NB Detox (chief complaint) Alcohol dependence, uncomplicatedMarijuan a dependenceMild episode of recurrent major depressive disorder [address] [facility] [address], [place], [place], [id number] , [place]. tel: [phone] Family History Family Member Type Diagnosis Age At Onset No Information Payers Payer name Insurance type Covered libertarian ID Authoriza tion(s) No Information Social History [...] to office as a new admission into [facility]. Below is his prior substance history. Substance [...] Anxiety, ADHD.Past Medical Hx: NonePast Surgical Hx: [place] Teeth.Allergies: NKDAMedications: Lexapro 10 mg, qd and [...] to office as a new admission into [facility]. Below is his prior substance history. Substance [...] Anxiety, ADHD.Past Medical Hx: NonePast Surgical Hx: [place] Teeth.Allergies: NKDAMedications: Lexapro 10 mg, qd and Trazodone 50 mg, 1 tab qhsSleep medication preference: TrzodoneSocial Hx:Tobacco: VapeMarital Status: SingleChildren: NoneEducation / Employment: Behavioral health techNo pending legal issues Functional Status Date Functional Assessmen t No Information Instructions Date Instruction Additional Infor mation continue with Lexapro Related to Mild episode of recurrent major depressive disorder Admit to [facility] IOPVit al Signs per routine.CounselingRandom UDS 2-3 x a week. Fax copy of any positive results to office [phone]. Order void after 45 days.RTO x 1 mth or sooner prn relapse or positive test result. Related to Alcohol dependence, uncomplicated Assessments Type Assessment Date assessment Alcohol dependence, uncomplicate d assessment Marijuana dependence impression Maintaining sobriety in a contro lled environment. assessment Mild episode of recurrent major depressive disorder impression stable Mental Status Date Cognitive Assessment Orientation - [place] ed to time, place, person, situation. Patient Care Teams Name Effective Dates (start - stop) Status Members No Information
== END 2024-07-21 17:51 | disposition home or self-care (01) ==
PROVIDERS: Emergency Medicine; Emergency Provider Emergency Medicine; PCP Physician Assistant
DX: K62.5 Hemorrhage of anus and rectum (principal)
CPT/HCPCS: 36415; 80053; 85025; 85610; 85730; 86850; 86900; 86901; 99283

== ENCOUNTER 2024-09-25 01:20 | Day surgery (SDC) | payer OTHER, SELFPAY ==
[2024-09-23 08:59] VITALS: BMI 20.5
--- OUTSIDE RECORDS SUMMARY | 2024-09-25 01:43 | XMS_ITS | Referral Summary ---
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
--- OUTSIDE RECORDS SUMMARY | 2024-09-25 01:43 | XMS_ITS | Continuity of Care Document ---
Author Organization [facility] Address [address] [place] [address] Phone Care Team Providers Care Solutions Architect Name Role Phone Talia Hernández Unavailable Unavailabl [...] Longer Active Procedures Procedure Date Video Visit [id number] Advance Directives Directive Yes / No Effective Date File Name No Information Encounters Encounter Description Practice Location Reason(s) For Visit Diagnoses Date Provider Providers Copied on Encounter Video Visit 53096 [facility], [address], [place], [place], [id number], [place] tel:[phone] [facility] CM Video Visit (chief complaint)si nus congestion (chief complaint) Acute maxillary sinusitis, unspecified [employer] Melgar. [address] [place], [address], [place]. tel:[phone] Family History Family Member Type Diagnosis Age At Onset No Information Payers Payer name Insurance type Covered libertarian ID Authoriza tiyassine(s) [facility] [id number] Social History Type Description Quantity Date Captured Comments Alcohol Use Details Unknown Caffeine Use Details Unknown Tobacco Use Status No Information Smoking Status No Information Sex Male Chief Complaint And Reason For Visit From encounter dated '11/27/2020 10:09'. Video Visit (chief complaint). Description: Patient agreed to the video visit and confirmed date ofbirth. This confidential video visit was performed via video communications using [email or web address] sinus congestion (chief complaint). Description: Nasal congestion, [...] visit was performed via video communications using [email or web address] sinus congestion Nasal congestio n, mild sore [...] finished.Please increase your fluid intake.Begin Flonase Nasal [place] and Zyrtec/Claritin daily.Tylenol or Motrin as needed for pain and fever.Follow up with Primary care provider in 1 week if not improving.Return to Urgent Care sooner if your symptoms get worse.Thank you for coming in today. Related to Acute maxillary sinusitis, unspecified Assessments Type Assessment Date assessment Acute maxillary sinusitis, unspe cified Mental Status Date Cognitive Assessment Orientation - [place] ed to time, place, person, situation. Patient Care Teams Name Effective Dates (start - stop) Status Members No Information
--- OUTSIDE RECORDS SUMMARY | 2024-09-25 01:43 | XMS_ITS | Clinical Summary ---
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 Gender Identity Not on file Sexual Orientation Not on file Plan of Treatment Health Maintenance Due Date Last Done Comments Depression Screening 1993 Hepatitis C Screening 1993 DTaP/Tdap/Td Vaccine (1 - Tdap) 2004 Varicella Vaccines (2 of 2 - 2-dose childhood series) 12/21/2004 09/28/2004 Hepatitis B Screening 11/06/2011 Regular Well Visit/Exam 18-64 11/06/2011 HPV Vaccines (1 - 3-dose SCD M series) 2020 Covid-19 Vaccine ( - 2023-2 5 season) 2023 08/09/2020, 07/12/2020 Influenza Vaccine (#1) 2024 12/28/2004 Pneumococcal vaccine <65 Aged Out No longer eligible based on patient's age to complete this topic
--- OUTSIDE RECORDS SUMMARY | 2024-09-25 01:43 | XMS_ITS | Continuity of Care Document ---
Author Organization [facility] Address [address] [place] [address] e [address] [place] [address] Phone Care Team Providers Care Back Up Scan Coordinator Name Role Phone Ry Salcedo MD Unavailable [...] Read By Direct Observ 022 Offic/outpt E&m [facility] Advance Directives Directive Yes / No Effective Date File Name No Information Encounters Encounter Description Practice Location Reason(s) For Visit Diagnoses Date Provider Providers Copied on Encounter Offic/outpt E&m [facility], [address] [facility] [address], [place], [id number] , tel: [phone] [facility], [facility]. NB Detox (chief complaint) Alcohol dependence, uncomplicatedMarijuan a dependenceMild episode of recurrent major depressive disorder [address] [facility] [address], [place], [place], [id number] , [place]. tel: [phone] Family History Family Member Type Diagnosis Age At Onset No Information Payers Payer name Insurance type Covered republican ID Authoriza tion(s) No Information Social History [...] to office as a new admission into [facility]. Below is his prior substance history. Substance [...] Anxiety, ADHD.Past Medical Hx: NonePast Surgical Hx: [place] Teeth.Allergies: NKDAMedications: Lexapro 10 mg, qd and [...] to office as a new admission into [facility]. Below is his prior substance history. Substance [...] Anxiety, ADHD.Past Medical Hx: NonePast Surgical Hx: [place] Teeth.Allergies: NKDAMedications: Lexapro 10 mg, qd and Trazodone 50 mg, 1 tab qhsSleep medication preference: TrzodoneSocial Hx:Tobacco: VapeMarital Status: SingleChildren: NoneEducation / Employment: Behavioral health techNo pending legal issues Functional Status Date Functional Assessmen t No Information Instructions Date Instruction Additional Infor mation continue with Lexapro Related to Mild episode of recurrent major depressive disorder Admit to [facility] IOPVit al Signs per routine.CounselingRandom UDS 2-3 x a week. Fax copy of any positive results to office [phone]. Order void after 45 days.RTO x 1 mth or sooner prn relapse or positive test result. Related to Alcohol dependence, uncomplicated Assessments Type Assessment Date assessment Alcohol dependence, uncomplicate d assessment Marijuana dependence impression Maintaining sobriety in a contro lled environment. assessment Mild episode of recurrent major depressive disorder impression stable Mental Status Date Cognitive Assessment Orientation - [place] ed to time, place, person, situation. Patient Care Teams Name Effective Dates (start - stop) Status Members No Information
--- NOTE | 2024-09-25 07:46 | P.PNAN_ITS ---
Anes - Initial Pre Proc Eval Procedure: Operation Date: 09/25/24 11:00 Proposed Procedures p Diagnostic Colonoscopy - Cam Diamond MD Date/Time: 09/25/24 07:46 Surgeon: Cam Diamond MD Pre Op Diagnosis: Other fecal abnormalities Patient Data Age: 28 Gender: M Height: 1.88 m Weight: 72.6 kg Allergies Allergy/AdvReac Type Severity Reaction Status Date / Time No Known Allergies Allergy Verified 09/25/24 09:53 Home Medications ?Medication ?Instructions ?Recorded ?Confirmed ?Type guanfacine 1 mg tablet,extended 1 mg PO QPM 09/23/24 09/25/24 History release 24 hr hydrocortisone acetate 25 mg 25 mg RECTAL BID PRN hemorrhoids 09/23/24 09/23/24 History rectal suppository Patient hx anesthesia problems: none Family hx anesthesia problems: none Results Review: All pre-operative results and documents have been reviewed as part of the pre- operative evaluation. PMFSH Past Medical History Medical History (Updated 09/25/24 @ 07:47 by Kuldip Cristobal DO) ADHD Social History Social History Smoking packs per day: 0.5 Smoking cigarettes per day: 10.0 Years smoked: 10 Smoking pack-years: 5.00 Smoking status: Former smoker Tobacco type: cigarettes Smokeless tobacco user: other Additional smoking assessment comments: USES NICOTINE POUCHES Alcohol intake: former Substance use: current Substance use type: marijuana Other substance usage details: DAILY Living arrangements: with family Spiritual care concerns: No Anes - Eval Final PreProcedure Day of Procedure 09/25/24 07:46 Patient weight: normal Heart: regular rate and rhythm Lungs: clear to auscultation and normal air movement Airway: Mallampati scale class II Neurological: alert and oriented Last oral intake: >/= 8 hours ASA classification: III Emergent: no Anesthetic plan: proceed Anesthesia type and monitoring: general GIVS and standard monitoring Results Review: All pre-operative results and documents have been reviewed as part of the pre- operative evaluation. Informed Consent: The patient's anesthetic plan and its attendant risks and benefits were discussed with the patient/family/POA. Questions were solicited and answers provided to the satisfaction of the patient/family/POA.
[2024-09-25 09:54] VITALS: BP 104/69; PULSE 62; RESP 20; TEMP 36.8; O2SAT 100
[2024-09-25] MEDS: LACTATED RINGERS 1,000 ML 150 ML IV CONT (09:57)
--- NOTE | 2024-09-25 10:48 | P.HP_ITS ---
History of Present Illness History of Present Illness Consent: Risks, benefits, and alternatives have been discussed and questions answered. Patient agrees to proceed with procedure. Chief complaint: Other fecal abnormalities Narrative: Maco Aguilar is a 28 year old male here for first colonoscopy, intermittent blood after wiping Review of Systems Review of Systems: All systems reviewed & are unremarkable except as noted in HPI and below PMFSH Past Medical History Medical History (Updated 09/25/24 @ 07:47 by Kuldip Cristobal, ) ADHD Social History Social History Smoking packs per day: 0.5 Smoking cigarettes per day: 10.0 Years smoked: 10 Smoking pack-years: 5.00 Smoking status: Former smoker Tobacco type: cigarettes Smokeless tobacco user: other Additional smoking assessment comments: USES NICOTINE POUCHES Alcohol intake: former Substance use: current Substance use type: marijuana Other substance usage details: DAILY Living arrangements: with family Spiritual care concerns: No Meds Home Medications and Allergies Home Medications ?Medication ?Instructions ?Recorded ?Confirmed ?Type guanfacine 1 mg tablet,extended 1 mg PO QPM 09/23/24 09/25/24 History release 24 hr hydrocortisone acetate 25 mg 25 mg RECTAL BID PRN hemorrhoids 09/23/24 09/23/24 History rectal suppository Allergies Allergy/AdvReac Type Severity Reaction Status Date / Time No Known Allergies Allergy Verified 09/25/24 09:53 Vital Signs Vital Signs - 24 hr 09/25/24 09:54 Temperature 98.2 F Pulse Rate 62 Respiratory Rate 20 Blood Pressure 104/69 Pulse Oximetry 100 Oxygen Delivery Room Air Exam Const: General: comfortable and no acute distress HENMT: Face/Nose/Sinus: Normal nares present Eyes: General: appearance normal, both eyes and all related structures Neck: Neck: no JVD Resp: Auscultation: clear to auscultation bilaterally Cardio: Rate: regular rate Rhythm: regular rhythm GI: Inspection: non-distended GI Palp: Yes Soft to palpation Skin: General skin exam: normal color Neuro: General: gait normal Speech: normal speech Extrem: General: normal to inspection Psych: Mental Status: mental status grossly normal Assessment and Plan Assessment and plan (1) Hematochezia: Code(s): K92.1 - Melena Status: Acute Assessment and Plan: colonoscopy
[2024-09-25 11:09] VITALS: BP 81/43; PULSE 66; RESP 17; O2SAT 97
[2024-09-25 11:19] VITALS: BP 83/46; PULSE 63; RESP 16; O2SAT 97
[2024-09-25 11:20] VITALS: BP 82/34; PULSE 65; RESP 17; O2SAT 100
== END 2024-09-25 11:38 | disposition home or self-care (01) ==
PROVIDERS: PCP Physician Assistant; Referring Provider Physician Assistant; Visit Provider Internal Medicine Gastroenterology
PROC: 0DJD8ZZ Inspection of Lower Intestinal Tract, Via Natural or Artificial Opening Endoscopic (ICD-10-PCS; CPT 45378; principal; 2024-09-25 11:00)
DX: K92.1 Melena (principal); K64.8 Other hemorrhoids; F17.290 Nicotine dependence, other tobacco product, uncomplicated; F12.90 Cannabis use, unspecified, uncomplicated
CPT/HCPCS: 45378; J2003; J2704; J7120